=== PATIENT | male | born 1980 | race Caucasian/White ===

== ENCOUNTER 2016-09-03 20:08 | Emergency (ER) | payer OTHER ==
[~2016-09-03] VITALS: Ht 165.1 cm; Wt 84.1 kg
[~2016-09-03 20:08] MED LIST: TEGRETOL200 MG PO; TOPAMAX100 MG PO; VIMPAT100 MG PO
[2016-09-03 20:57] LABS: HEMATOCRIT 44.9 % (38.0-50.0); MCH 30.4 PG (29.0-34.0); MCV 92.2 FL (86-99); MEAN PLAT.VOLUME 9.6 uM^3 (9.0-12.4); PLATELET COUNT 243 K/uL (156-360); RBC DIS.WIDTH-CV 12.6 % (11.8-14.6); RED BLOOD COUNT 4.87 M/uL (4.00-5.50); WHITE BLOOD COUNT 10.1 K/uL (4.1-10.2)
[2016-09-03 21:25] LABS: CHLORIDE 111 mEq/L (99-109); POTASSIUM 3.4 mEq/L (3.7-5.4); SODIUM 144 mEq/L (136-147)
[2016-09-03 21:27] LABS: GLUCOSE 102 mg/dL (70-99)
[2016-09-03 21:28] LABS: ANION GAP 15 MEQ/L (2-14)
[2016-09-03 21:31] LABS: GFR ESTIMATE (CALCULATED) > 59 mL/min/
[2016-09-03 21:32] LABS: UREA NITROGEN (BUN) 11 mg/dL (9-23)
[2016-09-03 21:56] VITALS: BP 127/83
== END 2016-09-03 21:57 | disposition home or self-care (01) ==
LOC: EME → EDBD 20:08 → EME 21:57
PROVIDERS: Emergency Medicine
DX: R56.9 Unspecified convulsions (principal); T42.76XA Underdosing of unspecified antiepileptic and sedative-hypnotic drugs, initial encounter; Z91.128 Patient's intentional underdosing of medication regimen for other reason; I10 Essential (primary) hypertension; G91.9 Hydrocephalus, unspecified; Z98.2 Presence of cerebrospinal fluid drainage device
CPT/HCPCS: 70450; 80048; 85027; 99281; 99283; J2060

== ENCOUNTER 2017-10-15 20:35 | Emergency (ER) | payer OTHER ==
[~2017-10-15] VITALS: Ht 175.3 cm; Wt 92.1 kg
[2017-10-15 21:19] LABS: HEMATOCRIT 38.7 % (38.0-50.0); HEMOGLOBIN 13.4 G/DL (12.5-16.6); MCH 31.6 PG (29.0-34.0); MCHC 34.6 G/DL (30.0-36.0); MCV 91.3 FL (86-99); PLATELET COUNT 226 K/uL (156-360); RBC DIS.WIDTH-CV 12.7 % (11.8-14.6); RBC DIS.WIDTH-SD 42.2 % (39-53); RED BLOOD COUNT 4.24 M/uL (4.00-5.50); WHITE BLOOD COUNT 7.7 K/uL (4.1-10.2)
[2017-10-15 21:34] LABS: ALBUMIN 4.4 g/dL (3.2-4.8); CHLORIDE 108 mEq/L (99-109); POTASSIUM 3.7 mEq/L (3.7-5.4); SODIUM 139 mEq/L (136-147)
[2017-10-15 21:36] LABS: GLUCOSE 111 mg/dL (70-99); TOTAL PROTEIN 7.2 g/dL (6.4-8.3)
[2017-10-15 21:38] LABS: TOTAL BILIRUBIN 0.1 mg/dL (0.0-1.0)
[2017-10-15 21:40] LABS: ALKALINE PHOSPHATASE 104 IU/L (3-129); GFR ESTIMATE (CALCULATED) > 59 mL/min/ (58.99-99999)
[2017-10-15 21:41] LABS: UREA NITROGEN (BUN) 12 mg/dL (9-23)
[2017-10-15 21:42] LABS: AST (GOT) 12 IU/L (2-34)
[2017-10-15 21:43] LABS: ALT (GPT) 16 IU/L (3-49)
[2017-10-15 22:54] VITALS: BP 122/77
== END 2017-10-15 22:55 | disposition home or self-care (01) ==
LOC: EME → EDBD 20:35 → EME 20:35
PROVIDERS: Nurse Practitioner Family
DX: G40.909 Epilepsy, unspecified, not intractable, without status epilepticus (principal); Z91.14 Patient's other noncompliance with medication regimen; Z98.2 Presence of cerebrospinal fluid drainage device; Z88.1 Allergy status to other antibiotic agents
CPT/HCPCS: 70450; 80053; 85027; 93005; 99281; 99284